=== PATIENT | female | born 1990 | race Caucasian/White ===

== ENCOUNTER 2016-09-20 20:47 | Emergency (ER) | payer MEDICAID ==
[2016-09-20 21:17] VITALS: BP 109/79; PULSE 87; RESP 18; TEMP 97.9; O2SAT 97
[2016-09-20] MEDS ORDERED: diphenhydrAMINE 25 MG CAP PO ONE (23:01)
[2016-09-20] MEDS ORDERED: FAMOTIDINE 20 MG TAB PO ONE (23:01)
[2016-09-20] MEDS ORDERED: predniSONE 20 MG TAB PO ONE (23:01)
--- NOTE | 2016-09-20 23:06 | UCPHY ---
H & P Patient Type: New Chief Complaint Nursing Narrative: Rash since Monday morning.Is allergic to dairy and cats. No exposure. Had a new [employer] Monday night. Time Seen by Provider: 09/20/16 22:53 HPI/ROS: CHIEF COMPLAINT: Hives HISTORY OF PRESENT ILLNESS: Patient is a 25-year-old female who comes to the Urgent Care complaining allergic reaction. She has had Hives that began yesterday morning. She thinks it is a reaction to milk. She has had similar before. She has been taking Benadryl 2-3 times per day with only moderate improvement. No swelling of her lips or airway. No wheezing or stridor. She does have a history of childhood asthma but has not had symptoms for several years. She does have pruritus. REVIEW OF SYSTEMS: Constitutional: denies: chills, fever, recent illness, recent injury EENTM: denies: blurred vision, double vision, nose congestion Respiratory: denies: cough, shortness of breath Cardiac: denies: chest pain, irregular heart rate, lightheadedness, palpitations Gastrointestinal/Abdominal: denies: abdominal pain, diarrhea, nausea, vomiting, blood streaked stools Genitourinary: denies: dysuria, frequency, hematuria, pain Musculoskeletal: denies: joint pain, muscle pain Skin: See HPI Neurological: denies: headache, numbness, paresthesia, tingling, dizziness, weakness Hematologic/Lymphatic: denies: blood clots, easy bleeding, easy bruising Immunologic/allergic: denies: HIV/AIDS, transplant EXAM: GENERAL: Well-appearing, well-nourished and in no acute distress. HEAD: Atraumatic, normocephalic. EYES: Pupils equal round and reactive to light, extraocular movements intact, sclera anicteric, conjunctiva are normal. ENT: TMs normal, nares patent, oropharynx clear without exudates. Moist mucous membranes. NECK: Normal range of motion, supple without lymphadenopathy or JVD. LUNGS: Breath sounds clear to auscultation bilaterally and equal. No wheezes rales or rhonchi. HEART: Regular rate and rhythm without murmurs, rubs or gallops. ABDOMEN: Soft, nontender, normoactive bowel sounds. No guarding, no rebound. No masses appreciated. BACK: No CVA tenderness, no spinal tenderness, step-offs or deformities EXTREMITIES: Normal range of motion, no pitting or edema. No clubbing or cyanosis. NEUROLOGICAL: Cranial nerves II through XII grossly intact. Normal speech, normal gait. 5/5 strength, normal movement in all extremities, normal sensation PSYCH: Normal mood, normal affect. SKIN: Mild hives throughout chest, back and extremities. Source: Patient Exam Limitations: No limitations - Personal History LMP (Females 10-55): 15-21 Days Ago - Medical/Surgical History Hx Asthma: No Hx Chronic Respiratory Disease: No Hx Diabetes: No Hx Cardiac Disease: No Hx Renal Disease: No Hx Cirrhosis: No Hx Alcoholism: No Other PMH: dairy allergy/hives - Family History Significant Family History: No pertinent family hx - Social History Smoking Status: Never smoked Alcohol Use: Sober Drug Use: None Constitutional: Initial Vital Signs Temperature (C) 36.6 C 09/20/16 21:13 Heart Rate 87 09/20/16 21:13 Respiratory Rate 18 09/20/16 21:13 Blood Pressure 109/79 09/20/16 21:13 O2 Sat (%) 97 09/20/16 21:13 O2 Delivery Mode Room Air Allergies/Adverse Reactions: No Known Allergies Allergy (Unverified 09/20/16 21:11) Home Medications: Medication Instructions Recorded Famotidine [Pepcid 20 MG (OTC)] 20 mg PO BID #30 tab 09/20/16 L.acidoph,Paracasei, B.lactis 09/20/16 [Probiotic] Multivitamin [Multi-Day Vitamins] 09/20/16 diphenhydrAMINE [Benadryl 50 MG 50 mg PO Q4-6PRN PRN #30 cap 09/20/16 (OTC)] predniSONE 60 mg PO DAILY #9 tab 09/20/16 Medical Decision Making ED Course/Re-evaluation: The patient's symptoms are stable. I will treat her with steroids, Benadryl and Pepcid. She would prefer to take them orally at home. I think that this is safe. She does not have any history of airway compromise. She we discussed indications for returning. Differential Diagnosis: Partial list of the Differential diagnosis considered include but were not limited to; allergic reaction, hives and although unlikely based on the history and physical exam, I also considered Pittman Freeman's,, sepsis. I discussed these differential diagnoses and the plan with the patient as well as the usual and expected course. The patient understands that the diagnosis is provisional and that in medicine we are not always correct and that further workup is often warranted. Usual and customary warnings were given. All of the patient's questions were answered. The patient was instructed to return to the emergency department should the symptoms at all worsen or return, otherwise to followup with the physician as we discussed. - Data Points Medications Given: Discontinued Medications Diphenhydramine HCl (Benadryl) 50 mg PO EDNOW ONE Stop: 09/20/16 23:02 Last Admin: 09/20/16 23:09 Dose: 50 mg Famotidine (Pepcid) 40 mg PO EDNOW ONE Stop: 09/20/16 23:02 Last Admin: 09/20/16 23:10 Dose: 40 mg Prednisone (Prednisone) 60 mg PO EDNOW ONE Stop: 09/20/16 23:02 Last Admin: 09/20/16 23:10 Dose: 60 mg Departure - Departure Disposition: Home, Routine, Self-Care Clinical Impression: Allergic reaction Qualifiers: Encounter type: initial encounter Qualified Code(s): T78.40XA - Allergy, unspecified, initial encounter Condition: Fair Instructions: Urticaria (ED) Referrals: Milton Whitehead DO [Doctor of Osteopathy] - As per Instructions Prescriptions: diphenhydrAMINE [Benadryl 50 MG (OTC)] 50 mg PO Q4-6PRN PRN #30 cap PRN Reason: Itching Famotidine [Pepcid 20 MG (OTC)] 20 mg PO BID #30 tab predniSONE 60 mg PO DAILY #9 tab - PQRS PQRS Measurement: Not applicable
== END 2016-09-20 23:18 | disposition home or self-care (01) ==
LOC: CED 20:47
DX: T78.40XA Allergy, unspecified, initial encounter (principal)
CPT/HCPCS: G0463-PO